=== PATIENT | female | born 1970 | race Caucasian/White ===

== ENCOUNTER → 2019-01-09 | Outpatient (CLI) | payer MEDICARE ==
--- NOTE | 2019-01-09 15:37 | RADIOLOGY REPORT (SQ) ---
EXAM DESCRIPTION: LUMBAR SPINE W/FLEX/EXT COMPLETED DATE/TIME: 01/09/2019 1:32 pm REASON FOR STUDY: LBP M54.5 LOW BACK PAIN M79.606 PAIN IN LEG, UNSPECIFIED COMPARISON: None. NUMBER OF VIEWS: 7 TECHNIQUE: AP, oblique, coned down lateral, and lateral views in neutral, flexion, and extension. LIMITATIONS: None. FINDINGS: MINERALIZATION: Normal. SEGMENTATION: Normal. No transitional anatomy. ALIGNMENT: Normal. FLEXION/EXTENSION: No instability. VERTEBRAE: Maintained height. No fracture or worrisome bone lesion. DISCS: Disc implants at L4-5 and L5-S1 POSTERIOR ELEMENTS: Pedicles and facets are intact. No pars defect or posterior arch defects. HARDWARE: Posterior rods are present from L4-S1 with screws through the pedicles and disc implants. OTHER: No other significant finding. IMPRESSION: Surgical changes. No instability on flexion/ extension. TECHNICAL DOCUMENTATION: JOB ID: [id number] [employer]- All Rights Reserved Reading location - IP/workstation name: [email or web address]
--- NOTE | 2019-01-09 15:38 | RADIOLOGY REPORT (SQ) ---
EXAM DESCRIPTION: T SPINE AP/LAT COMPLETED DATE/TIME: 01/09/2019 1:32 pm REASON FOR STUDY: LBP M54.5 LOW BACK PAIN M79.606 PAIN IN LEG, UNSPECIFIED COMPARISON: None. NUMBER OF VIEWS: Two views. TECHNIQUE: AP and lateral radiographic images acquired of the thoracic spine. LIMITATIONS: None. FINDINGS: MINERALIZATION: Normal. ALIGNMENT: Mild levoscoliosis. VERTEBRAE: No fracture or bone lesion. Maintained height, normal segmentation. DISCS: No significant loss of height or significant narrowing. No large osteophytes. HARDWARE: Neurostimulator electrodes. MEDIASTINUM AND SOFT TISSUES: Normal heart size and aortic contour. No soft tissue abnormality. VISUALIZED LUNG ASKEW: Clear. OTHER: No other significant finding. IMPRESSION: Scoliosis. No acute finding. TECHNICAL DOCUMENTATION: JOB ID: [id number] [employer]- All Rights Reserved Reading location - IP/workstation name: [email or web address]
== END ==
LOC: OD 13:04
PROVIDERS: ATTEND Anesthesiology Pain Medicine
DX: M54.5 Low back pain (principal); M79.662 Pain in left lower leg
CPT/HCPCS: 72070; 72114

== ENCOUNTER → 2019-06-10 | Outpatient (CLI) | payer MEDICARE ==
--- NOTE | 2019-06-10 16:04 | RADIOLOGY REPORT (SQ) ---
EXAM DESCRIPTION: CT LUMBAR SPINE WITHOUT COMPLETED DATE/TIME: 06/10/2019 10:23 am REASON FOR STUDY: M96.1 POSTLAMINECTOMY SYNDROME, NOT ELSEWHERE CLASSIFIED, M54.42 LUMBAGO WI M96.1 POSTLAMINECTOMY SYNDROME, NOT ELSEWHERE CLASSIFIED M54.42 LUMBAGO WITH SCIATICA, LEFT SIDE COMPARISON: Lumbar spine plain films 01/09/2019 No MRI available for comparison TECHNIQUE: Axial images acquired through the lumbar spine without intravenous contrast. Images revi ewed with lung, soft tissue and bone windows. Reconstructed coronal and sagittal MPR images reviewed . All images stored on PACS. All CT scanners at this facility use dose modulation, iterative reconstruction, and/or weight based d osing when appropriate to reduce radiation dose to as low as reasonably achievable (ALARA). [facility]: Dose Right [facility]: CareDose [facility]: Dose Right [facility]: Teradose 4D [facility]: Bizdom RADIATION DOSE: CT Rad equipment meets quality standard of care and radiation dose reduction techniq ues were employed. CTDIvol: 6.3 mGy. DLP: 175 mGy-cm. mGy. LIMITATIONS: No intrathecal or IV contrast Streak artifact from hardware FINDINGS: SEGMENTATION: Normal. No transitional anatomy. ALIGNMENT: Normal. VERTEBRAL BODIES: No fractures. No dislocation. No acute findings. DISCS: High-grade disc space loss of height at T12-L1 with vertebral body endplate sclerosis and vacu um disc phenomenon. Post fusion with hardware at L4-5 and L5-S1. At T12-L1, minimal posterior disc bulging is present without significant central or foraminal narrowi ng. At L1-2, minimal posterior disc bulging is present without central or foraminal stenosis. At L2-3, minimal posterior disc bulging is present without significant central or foraminal stenosis. At L3-4, mild posterior disc bulging and moderate bilateral facet and ligament hypertrophy causes bor derline central canal narrowing best shown on axial image 45. There is mild bilateral inferior nabil inal narrowing without exit L3 nerve root impingement. Ligamentum flavum thickening and ossification is present. At L4-5, patient is post bilateral laminectomy and fusion with metallic disc spacer and bilateral tra nspedicular screws. No lucency around the hardware worrisome for loosening. Central canal is widely decompressed. There is mild bilateral inferior foraminal narrowing without definite exit L4 nerve r oot impingement. At L5-S1, patient is post bilateral laminectomy and fusion with metallic disc spacer and bilateral tr anspedicular screws. Note lucency around the hardware worrisome for loosening. Central canal is wid yin decompressed. There is mild bony spurring along the disc margin along the right and left foramin a with mild inferior foraminal narrowing. PEDICLES, TRANSVERSE PROCESSES: No fractures. No dislocation. No acute findings. FACETS, POSTERIOR ELEMENTS: As above HARDWARE: As above VISUALIZED RIBS: No fractures. SOFT TISSUES: No significant or acute finding in adjacent soft tissues. OTHER: No other significant finding. IMPRESSION: Post fusion at L4-5 and L5-S1. On this non-myelogram imaging, no significant central or foraminal stenosis is seen. TECHNICAL DOCUMENTATION: JOB ID: [id number] Quality ID # [id number]: Final reports with documentation of one or more dose reduction techniques (e.g., Au tomated exposure control, adjustment of the mA and/or kV according to patient size, use of iterative reconstruction technique) 2010 [employer]- All Rights Reserved Reading location - IP/workstation name: [email or web address]
== END ==
LOC: RAD 09:53
PROVIDERS: ATTEND Physician Assistant
DX: M96.1 Postlaminectomy syndrome, not elsewhere classified (principal); M54.42 Lumbago with sciatica, left side
CPT/HCPCS: 72131